=== PATIENT | female | born 1970 | race African-American/Black ===

== ENCOUNTER 2016-11-28 19:17 | Emergency (ER) | payer OTHER ==
--- NOTE | ~2016-11-28 | CR63 ---
[facility] A Service of [facility] & [facility] RADIOLOGY TEXT RESULTS PATIENT: SANTOS BINGHAM LOCATION: [facility] : 66 UNIT #: [id number] AGE: [address]: Дмитрий Ibarra MD SEX: F ORDER DR: [id number] [facility] [address] [place], [place] [address] [id number] E MR#: [id number] Acc #: [id number] NAME: SANTOS BINGHAM : 1970 SEX: F STUDY DATE/TIME: 11/28/2016 21:23 UNIT: [facility] ROOM: STUDY DESCRIPTION: CR Chest 2 View Attending Physician: Jasson Ibrara M.D. Ordering Physician: Ed Doc Chitra Cortes Primary Care Physician: No Primary Care Physician MEDICAL IMAGING REPORT This report is preliminary unless electronic signature is present EXAM PA and lateral chest. HISTORY Cough and shortness of air and wheezing for 2 days. FINDINGS Borderline to mild cardiac enlargement is accentuated by low lung volumes. Pulmonary vascularity is normal. No pulmonary infiltrates. No pleural effusions. IMPRESSION No acute findings. Dictated by... Gregg Mariee M.D. THIS IS AN ELECTRONICALLY VERIFIED REPORT Gregg Mariee M.D. at 11/28/2016 11:32 PM FLACA/basilio TD: 11/28/2016 22:37 JOB #: [id number] MEDICAL IMAGING REPORT Page 1 of 1 COPY
[~2016-11-28 19:17] MED LIST: AMOXICILLIN875 MG PO; AMOXIL500 M1 PO; ASPIRIN PO; ASPIRIN81 M1 PO; BENZONATATE PO; CLONIDINE PO; CLONIDINE TOP; DARVOCET-N 1001 TAB PO; DOXYCYCLINE PO; FERRO-TIME325 MG PO; FLEXERIL10 MG PO; GLUCOTROL PO; GUAIFENESIN200 MG PO; HCTZ PO; HYDROCHLOROTHIA25 MG PO; HYZAAR 50-12.51 TAB PO; IBUPROFEN PO; JANUMET 50-501 UDTAB PO; LISINOPRIL; MAXZIDE-25 MG1 UDTAB; MEDROL DOSEPAK4 MG PO; METFORMIN HCL500 M1 PO; METFORMIN PO; METOPROLOL TAR25 MG PO; NAPROSYN500 MG PO; NEURONTIN PO; NORVASC PO; ORUDIS75 M1 PO; PHENERGAN/CODEIN5 ML PO; ZANTAC
[2016-11-28 22:03] LABS: URINE SOURCE CLEAN CATCH
[2016-11-28 22:11] LABS: URINE APPEARANCE CLEAR; URINE BILIRUBIN NEG (NEG); URINE BLOOD NEG (NEG); URINE COLOR DK YELLOW; URINE GLUCOSE NEG (NEG); URINE KETONE TRACE (NEG); URINE LEUKOCYTE ESTERASE NEG (NEG); URINE NITRATE NEG (NEG); URINE PROTEIN NEG (NEG)
[2016-11-28 22:16] LABS: CULTURE INDICATED? NO
== END 2016-11-28 22:42 | disposition home or self-care (01) ==
LOC: CED 19:17
PROVIDERS: Emergency Medicine
DX: J20.9 Acute bronchitis, unspecified (principal); E11.9 Type 2 diabetes mellitus without complications; I10 Essential (primary) hypertension; E07.9 Disorder of thyroid, unspecified; D64.9 Anemia, unspecified; F17.210 Nicotine dependence, cigarettes, uncomplicated
CPT/HCPCS: 71020; 81003; 84703; 99283